=== PATIENT | male | born 1975 | race American Indian/Alaskan Native ===

== ENCOUNTER 2020-07-14 10:44 | Emergency (ER) | payer SELFPAY ==
--- NOTE | 2020-07-14 14:05 | Event Note ---
ED Screening Note ED Screening Note: BLE edema that began beginning June has not seen anyone for it +SOB +orthopnea +dry cough no fever +intermittent n/v no CP pain under the left shoulder blade PMHx HTN allergy: penicillin denies hx of CHF This initial assessment/diagnostic orders/clinical plan/treatment(s) is/are subject to change based on patients health status, clinical progression and re- assessment by fellow clinical providers in the ED. Further treatment and workup at subsequent clinical providers discretion. Patient/guardian urged not to elope from the ED as their condition may be serious if not clinically assessed and managed. Initial orders include: CP protocol
--- NOTE | 2020-07-14 14:29 | XRay Report ---
CHEST 2 VIEWS INDICATION / CLINICAL INFORMATION: Chest Pain. COMPARISON: None available. FINDINGS: SUPPORT DEVICES: None. HEART / MEDIASTINUM: No significant abnormality. LUNGS / PLEURA: No significant pulmonary or pleural abnormality. No pneumothorax. ADDITIONAL FINDINGS: No significant additional findings. IMPRESSION: 1. No acute findings. Signer Name: Wesley Chavez MD Signed: 07/14/2020 2:24 PM Workstation Name: [id number]
[2020-07-14 15:56] LABS: Basophils % (Auto) 0.2 % (0.0-1.8); Eosinophils % (Auto) 0.4 % (0.0-4.3); Hematocrit 49.4 % (35.5-45.6); Hemoglobin 16.3 gm/dl (11.8-15.2); Lymphocytes # (Auto) 1.9 K/mm3 (1.2-5.4); Lymphocytes % (Auto) 24.4 % (13.4-35.0); Mean Corpuscular HGB Conc 33 % (32-34); Mean Corpuscular Volume 100 fl (84-94); Monocytes # (Auto) 0.7 K/mm3 (0.0-0.8); Monocytes % (Auto) 9.5 % (0.0-7.3); Platelet Count 205 K/mm3 (140-440); Red Blood Count 4.96 M/mm3 (3.65-5.03)
[2020-07-14 16:23] LABS: Albumin 3.5 g/dL (3.9-5); Calcium 9.8 mg/dL (8.4-10.2)
[2020-07-14 16:58] LABS: Chol/HDL Ratio 3.82 %
[2020-07-14] MEDS ORDERED: FUROSEMIDE 40 MG/4 ML INJ IV ONE ×2 (17:13→19:18)
--- NOTE | 2020-07-14 17:18 | Emergency Department Report ---
HPI - General Chief Complaint: Dyspnea/Respdistress Time Seen by Provider: 07/14/20 14:03 - HPI HPI: Room 34 The patient is a 45-year-old male present with a chief complaint of shortness of breath. The patient states for 1 month he has had dyspnea on exertion and 5 pillow orthopnea. Patient states whenever he walks or goes up stairs he gets short of breath. Patient states he has difficulty sleeping at night unless he uses 5 pillows. Patient states over the past 3 days he has noticed swelling in both lower extremities. Patient states last night he had an episode of squeezing chest pain. Patient denies history of fever. Patient states he has not had any of his blood pressure medication in years ED Past Medical Hx - Past Medical History Previous Medical History?: Yes Hx Hypertension: Yes - Surgical History Additional Surgical History: L4/L5 surgery - Family History Family history: no significant - Social History Smoking Status: Former Smoker (None x3 months) Substance Use Type: None (Denies illicit drug use), Alcohol (Occasional) ED Review of Systems ROS: Stated complaint: CHEST PAIN/LEGS SWELLING Other details as noted in HPI Constitutional: denies: fever Eyes: denies: eye pain ENT: denies: throat pain Respiratory: orthopnea, shortness of breath, SOB with exertion Cardiovascular: chest pain, dyspnea on exertion Endocrine: no symptoms reported Gastrointestinal: denies: nausea, vomiting Genitourinary: denies: dysuria Musculoskeletal: denies: back pain Neurological: denies: headache Physical Exam - Physical Exam Vital Signs: Vital Signs 07/14/20 13:50 Temperature 97.8 F Pulse Rate 107 H Respiratory 20 Rate Blood Pressure 160/131 [Right] O2 Sat by Pulse 98 Oximetry Physical Exam: GENERAL: The patient is well-developed well-nourished male lying on stretcher not appearing to be in acute distress. [] HEENT: Normocephalic. Atraumatic. Extraocular motions are intact. Patient has moist mucous membranes. NECK: Supple. Trachea midline CHEST/LUNGS: Clear to auscultation. There is no respiratory distress noted. HEART/CARDIOVASCULAR: Regular. There is no tachycardia. There is no gallop rub or murmur. ABDOMEN: Abdomen is soft, nontender. Patient has normal bowel sounds. There is no abdominal distention. SKIN: There is no rash. There is 2-3+ bilateral lower extremity pitting edema. There is no diaphoresis. NEURO: The patient is awake, alert, and oriented. The patient is cooperative. The patient has normal speech MUSCULOSKELETAL: There is no evidence of acute injury. ED Course Vital Signs 07/14/20 13:50 Temperature 97.8 F Pulse Rate 107 H Respiratory 20 Rate Blood Pressure 160/131 [Right] O2 Sat by Pulse 98 Oximetry ED Medical Decision Making - Lab Data Result diagrams: 07/14/20 15:25 07/14/20 15:25 - EKG Data -: EKG Interpreted by Me EKG shows normal: sinus rhythm Rate: tachycardia (106 bpm) - EKG Data When compared to previous EKG there are: previous EKG unavailable Interpretation: [facility] - Radiology Data Radiology results: report reviewed (Chest x-ray), image reviewed (Chest x-ray) interpreted by me: Chest [id number]. No pneumothorax. [place] [address] XRay Report Signed Patient: GERSON HASSAN MR#: [id number] : 1975 Acct:[id number] Age/Sex: 45 / M ADM Date: 07/14/20 Loc: ED Attending Dr: Ordering Physician: WANDY NEWSOME Date of Service: 07/14/20 Procedure(s): X R chest routine 2V Accession Number(s): [id number] cc: WANDY NEWSOME Fluoro Time In Minutes: CHEST 2 VIEWS INDICATION / CLINICAL INFORMATION: Chest Pain. COMPARISON: None available. FINDINGS: SUPPORT DEVICES: None. HEART / MEDIASTINUM: No significant abnormality. LUNGS / PLEURA: No significant pul monary or pleural abnormality. No pneumothorax. ADDITIONAL FINDINGS: No significant additional findings. IMPRESSION: 1. No acute findings. Signer Name: Wesley Chavez MD Signed: 07/14/2020 2:24 PM Workstation Name: [id number] Transcribed By: PRISCILA Dictated By: Wesley Chavez MD Electronically Authenticated By: Wesley Chavez MD Signed Date/Time: 07/14/201423 DD/ 23 - Differential Diagnosis New onset CHF, myocarditis, pneumonia, bronchitis Critical care attestation.: If time is entered above; I have spent that time in minutes in the direct care of this critically ill patient, excluding procedure time. ED Disposition Clinical Impression: New onset of congestive heart failure, Chest pain Disposition: OP ADMIT IP TO THIS HOSP Is pt being admited?: Yes Does the pt Need Aspirin: Yes Condition: Fair Instructions: Chest Pain (ED) Referrals: PRIMARY CARE, [Primary Care Provider] - 3-5 Days Time of Disposition: 17:19 (Hospitalist paged (Dr. Monzon))
[2020-07-14] MEDS ORDERED: ASPIRIN 325 MG TAB PO ONE (18:07)
[2020-07-14] MEDS ORDERED: SODIUM POLYSTYRENE 15 GM/60 ML ORAL LIQD PO ONE (18:07)
[2020-07-14] MEDS ORDERED: METOPROLOL TARTRATE 25 MG TAB PO ONE (18:08)
[2020-07-14] MEDS ORDERED: hydrALAZINE 20 MG/1 ML INJ IV ONE (20:26)
[2020-07-14] MEDS ORDERED: ONDANSETRON 4 MG/2 ML INJ ONE (21:19)
[2020-07-14] MEDS ORDERED: ONDANSETRON 4 MG/2 ML INJ IV ONE (21:21)
[2020-07-14 22:23] VITALS: BP 132/107
== END 2020-07-14 22:24 | disposition admitted as inpatient to this hospital (09) ==
LOC: ED 10:44
DX: I50.9 Heart failure, unspecified (principal); I11.0 Hypertensive heart disease with heart failure; Z87.891 Personal history of nicotine dependence; Z88.0 Allergy status to penicillin
CPT/HCPCS: 36415; 71046; 80053; 80061; 83690; 83880; 84484; 85025; 93005; 96374; 96375; 96376; 99284; J1940; J2405